=== PATIENT | male | born 1980 | race Two or more races ===

== ENCOUNTER 2018-07-16 07:25 | Emergency (ER) | payer OTHER ==
[~2018-07-16] VITALS: Ht 167.6 cm; Wt 72.6 kg
--- NOTE | 2018-07-16 22:18 | EKG ---
[facility] [address] [place], [place] [address] Signed Sinus tachycardia Rightward axis Borderline ECG No previous ECGs available Confirmed by LOYD FRANKLIN DO ([id number]) on 07/16/2018 10:18:11 PM Electronically Signed By: LOYD FRANKLIN DO 07/16/18 2218 PATIENT NAME: MANJULA BISWAS Electrocardiogram DATE OF : 84 PHYSICIAN: LOYD FRANKLIN DO REPORT #: [id number] REPORT IS CONFIDENTIAL AND NOT TO BE RELEASED WITHOUT AUTHORIZATION
== END 2018-07-16 09:50 | disposition short-term general hospital (02) ==
LOC: ED 07:25
DX: S06.6X3A Traumatic subarachnoid hemorrhage with loss of consciousness of 1 hour to 5 hours 59 minutes, initial encounter (principal); S02.19XA Other fracture of base of skull, initial encounter for closed fracture; R00.0 Tachycardia, unspecified; W19.XXXA Unspecified fall, initial encounter
CPT/HCPCS: 70450; 71045; 80053; 83735; 84484; 85025; 93005; 93010; 96361; 96374; 99285-25; J2405; J7030